=== PATIENT | male | born 1980 | race Caucasian/White ===

== ENCOUNTER 2017-10-29 12:28 | Day surgery (SDC) | payer BC, SELFPAY ==
[2017-10-29 12:39] VITALS: BP 125/81; PULSE 67; RESP 18; TEMP 36.8; O2SAT 96
[2017-10-29] MEDS: Lactated Ringers 1,000 ML 80 ML IV (13:01)
[2017-10-29] MEDS: Lidocaine 1% Pres-Free 5 ML VIAL 20 ML (13:36)
[2017-10-29] MEDS: Bupivacaine 0.5% Pres-Free 30 ML VIAL (13:36)
--- NOTE | 2017-10-29 13:38 | W.PM.DSUDISC ---
Discharge Plan Disposition Patient Disposition: HOME Condition: Stable Discharge Details Attending Provider: Mickey Corral Primary Care Provider: Gayathri Blackwell Home Meds and New Rx's Prescriptions: No Action naproxen sodium 220 mg Capsule 220 mg PO PRN PRNRF: 0 Discharge Instructions Additional Instructions: OK to restart Naproxen - may use tramadol at same time if needed No straining or lifting over 10 pounds for 48 hours OK to shower Ice back to scrotum (bag of frozen peas works well) No appt needed, but pt should bring semen sample to office in @ 12 weeks Activity:: see additional instructions Diet:: As Tolerated Discharge Orders Discharge Orders: Discharge Order (Routine); Ordered 10/29/17 Ordered By: Mickey Corral
--- NOTE | 2017-10-29 14:10 | ROE_ITS ---
DATE OF PROCEDURE: October 29, 2017 PREOPERATIVE DIAGNOSIS: Elective sterilization. POSTOPERATIVE DIAGNOSIS: Same. PROCEDURE: Bilateral vasectomy. SURGEON: Mickey Corral M.D. ANESTHESIA: Monitored Anesthesia Care with local. COMPLICATIONS: None. ESTIMATED BLOOD LOSS: Minimal. HISTORY: This is a 36-year-old gentleman who has two children. He and his current partner are not i nterested in further pregnancies. He presents for a vasectomy. PROCEDURE: He was brought to the procedure room on 10/29/17. He was given monitored anesthesia care and placed in the supine position. His genitalia was prepped and draped. We began on the left side and isolated the vase deferens up ag ainst the scrotal skin. The skin was infiltrated with 1% Xylocaine. The skin was then opened using a scalpel-free technique. The vas was grasped in a ring forceps. The vas was then dissected free from its surrounding tissue. A 2 cm section of vas was excised. Each cut end of the vas was cauterized using the Bovie. A cord block was then performed using 0.5% Marcaine. The more proximal end of the vas was buried albertina k beneath the adventitia with a simple interrupted 4-0 chromic suture. The same procedure was then performed on the patient's right side. Again a 2 cm section of vas was e xcised. Each cut end was cauterized. A cord block was performed and the more proximal end of the va s was buried back beneath the adventitia. Neither of the vas deferens specimens was sent to pathology. This is the current recommendation of t he [employer]. Each wound was inspected for hemostasis with no active bleeding seen. We closed the skin using Dermabond. The patient tolerated the procedure well with no complications. cc: Gayathri Blackwell M.D.
[2017-10-29 14:15] VITALS: BP 131/89; PULSE 58; RESP 16; TEMP 37; O2SAT 98
== END 2017-10-29 14:24 | disposition home or self-care (01) ==
PROVIDERS: Visit Provider Urology
PROC: (CPT 55250; principal; 2017-10-29 14:20)
DX: Z30.2 Encounter for sterilization (principal)
CPT/HCPCS: 55250; J1885; J2405

== ENCOUNTER 2023-08-06 06:06 | Day surgery (SDC) | payer BC, SELFPAY ==
[2023-08-06] VITALS (33 sets, daily range): BP systolic 123–148; BP diastolic 72–99; PULSE 63–91; RESP 11–22; TEMP 35.5–36.7; O2SAT 93–98; BMI 31.3
[2023-08-06] MEDS: Heparin 5,000 UNITS/ML VIAL 5000 UNITS SC (06:35)
[2023-08-06] MEDS: Lactated Ringers 1,000 ML 80 ML IV (06:35)
[2023-08-06] MEDS: Acetaminophen 500 MG TAB 1000 MG PO (06:36)
--- NOTE | 2023-08-06 06:59 | W.ANESPRE ---
General Info Date of Service Date Performed: 08/06/23 Height: 5 ft 8 in Weight: 93.4 kg Body Mass Index (BMI): 31.3 Surgical Procedure: Operation Date: 08/06/23 07:40 Proposed Procedure Side Surgeon p Hernia Inguinal Laparoscopic Left Edu Palomino MD Meds Allergies and Home Medications Allergies Allergy/AdvReac Type Severity Reaction Status Date / Time No Known Allergies Allergy Verified 08/06/23 06:26 Home Medication Medication Instructions Recorded Unknown [No Known Home Meds] 07/26/23 Current Visit Medications: Current Medications Generic Name Dose Route Start Last Admin Trade Name Freq PRN Reason Stop Dose Admin Acetaminophen 1,000 mg 08/06/23 06:00 08/06/23 06:36 Acetaminophen 500 Mg Tab PO 08/06/23 23:59 1,000 mg PREOP JAE Administration Heparin Sodium (Porcine) 5,000 units 08/06/23 06:00 08/06/23 06:35 Heparin 5,000 Units/Ml Vial SC 08/06/23 16:00 5,000 units TODAY JAE Administration Ringer's Solution 1,000 mls @ 80 mls/hr 08/06/23 06:00 08/06/23 06:35 IV 08/06/23 23:59 80 mls/hr INFUSION JAE Administration IV Miscellaneous Supplies 1 each 08/06/23 06:00 Iv Access IV 08/06/23 23:59 DIRECTED JAE Sodium Chloride 0 ml 08/06/23 06:00 Normal Saline Flush 10 Ml Syr IV 08/06/23 23:59 PRN PRN Sodium Chloride 0 ml 08/06/23 06:00 Normal Saline 10 Ml Vial IJ 08/06/23 23:59 DIRECTED PRN Sterile Water 0 ml 08/06/23 06:00 Water,Injection,Sterile 10 Ml Vial IJ 08/06/23 23:59 DIRECTED PRN PFSH Active Problems Active Problems: Problem Status Onset Code Direct left inguinal hernia K40.90 Medical History Medical History Lateral epicondylitis of right humerus Left inguinal hernia Essential hypertension Nicotine dependence Obesity post nasal drip enlarged tonsils Surgical History Surgical History Tonsillectomy Repair of inguinal hernia Tooth extraction Tobacco Smoking/Tobacco Use Status: Current every day Tobacco Type: cigarettes Years smoked: 5 Alcohol Alcohol Intake: current Alcohol intake frequency: a few times a month Alcohol type: beer and hard liquor Substance Use Substance use: Never Vital Signs and Lab Results Vital Signs Most Recent Vital Signs in EMR: Most Recent Vital Signs Temp Pulse Resp BP Pulse Ox 36.6 C 63 16 148/83 H 97 08/06/23 06:28 08/06/23 06:28 08/06/23 06:28 08/06/23 06:28 08/06/23 06:28 Lab Results Blood Type / Crossmatch: No Data to Display Complete Blood Count: No Data to Display Complete Metabolic Panel: No Data to Display Liver Function Panel: No Data to Display Coagulation Panel: No Data to Display Cardiac Panel: No Data to Display Arterial Blood Gas: No Data to Display Venous Blood Gas: No Data to Display Pancreas Panel: No Data to Display Thyroid Panel: No Data to Display Infectious Disease: No Data to Display Blood Cultures: No Data to Display Toxicology Panel: No Data to Display Anesthesia Assessment and Plan Anesthesia History Personal History: No History of Anesthesia Complications Family History: No Family History of Anesthesia Complications Exercise Tolerance Exercise Tolerance: Metabolic Equivalents>4 Cardiac & Pulmonary Exam Cardiac Exam: Normal S1/S2 Heart Sounds Pulmonary Exam: Clear Bilateral Breath Sounds Implantable Cardiac Device Does patient have a Pacemaker or an ICD?: No Airway Exam Known Difficult Airway: No Mallampati Class: 1 Mouth Opening: Normal (> 3cm) Thyromental Distance: Greater than 3 cm Facial Hair: Full Cisse Neck Range of Motion: Full ROM (Mild jaw click on right side) Neck Circumference: Normal Teeth Condition: Normal Dentition ASA Classification ASA Score: ASA 2 Emergency Case?: No NPO Status NPO Status: NPO Clears >2 hours, Solids >8 hours Anesthesia Plan Resuscitation Status: Full Code Anesthesia Technique: General Anesthesia Airway Planned: Natural Airway Monitors Used: Standard Monitors
[2023-08-06] MEDS: Bupivacaine LIPOSOME/PF 133 MG/10 ML VIAL IJ (08:05)
[2023-08-06] MEDS: Bupivacaine 0.25% Pres-Free 30 ML VIAL (08:05)
--- NOTE | 2023-08-06 09:35 | W.PM.OP ---
Date of service: 08/06/23 Time of Service: 09:15 Operative Note Operative Note Refer to Anesthesia Record Procedure Description: Procedures performed: 1. Laparoscopic LEFT inguinal hernia repair of primary, INCARCERATED inguinal hernia 2. Laparoscopic bilateral TAP block Preoperative Diagnosis: Reducible left inguinal hernia Postoperative Diagnosis: Incarcerated left indirect inguinal hernia Surgeon: Odell Palomino Assist: None Anesthesia: General Anesthesiologist: Xena Indication: Tender but reducible left inguinal hernia. Findings: The sigmoid colon was incarcerated within the inguinal canal. It was able to be reduced by dissecting out the hernia sac/peritoneal flap and no lysis of adhesions had to be done. A standard posterior repair with 3D max mesh was performed. Complications: None Estimated Blood Loss: (5cc) Scant Specimens removed: None Grafts or implants: 3D max left?sided large mesh Procedure in detail: Written consent was obtained from the patient who was in agreement with the risks, the benefits and the indications for the procedure. The patient was taken to the operating suite and laid supine on the operating table with his right arm tucked. IV antibiotics were not indicated and DVT prophylaxis had been given. Venodynes were in place. General anesthesia was administered which was tolerated very well. We then prepped and draped the abdomen in sterile fashion. A timeout was performed. When we were all in agreement we began the procedure. Local anesthetic was injected at each trocar site. Within the umbilicus a small stab incision was made and a 5 mm Optiview trocar was used to enter into the abdomen under direct visualization. There is a small primary umbilical hernia which was used for entry. The liver was inspected and did not appear cirrhotic. An indirect left inguinal hernia was present with a loop of sigmoid colon incarcerated inside of it. 2 other 5 mm port were placed under direct visualization and the umbilical port was upsized to a 12 mm to facilitate passing the mesh and sutures. A bilateral TAP block was performed under laparoscopic vision with a mixture of Exparel and bupivacaine. The patient was placed in Trendelenburg and we had good visualization of the intra-abdominal contents, pelvis and the left pelvic sidewall. In standard/usual fashion I created a peritoneal flap. A combination of blunt and sharp dissection was performed using the LigaSure. I was able to reduce the hernia sac out of the inguinal canal. In doing this, I completely reduced the sigmoid colon as well and did not have to do any adhesiolysis. I developed my space all the way medial to beyond the pubic tubercle midline. Len's ligament was clearly exposed. Hemostasis was excellent. A 3D max mesh was introduced in usual fashion and laid perfectly within the space I had created. The indirect, direct as well as the femoral spaces were all completely covered with significant and adequate overlay. I sutured a corner of the mesh to Len's ligament with Vicryl and in the upper outer quadrant to the fascia with Vicryl to the mesh would not rotate or migrate. Next I closed my peritoneal flap with the V-loc. Hemostasis was excellent. I closed the umbilical defect (which was a primary hernia) with 0 Vicryl. The 5 mm ports were removed. I closed the skin with Monocryl and put Dermabond on top. The testicles were present in the scrotum bilateral after the procedure. The sponge, instrument and sharps count was correct x3 at the end of the procedure. The patient tolerated the procedure well and was taken to the PACU in hemodynamically stable condition.
[2023-08-06] MEDS: HYDROmorphone 2 MG/ML SYR IVP ×4 (09:46→10:34)
[2023-08-06] MEDS: Normal Saline 10 ML VIAL IJ (09:46)
--- NOTE | 2023-08-06 10:20 | W.ANESPOSTOP ---
Postoperative Evaluation Date, Time and Location Date Performed: 08/06/23 Time Performed: 10:20 Patient Location: PACU Vital Signs Most Recent Imported Vital Signs: Most Recent Vital Signs Temp Pulse Resp BP Pulse Ox 36.7 C 82 19 136/91 H 9 L 08/06/23 10:10 08/06/23 09:55 08/06/23 09:55 08/06/23 09:55 08/06/23 10:10 Pain Score Most Recent Pain Score: Most Recent Pain Score Pain Level 6 08/06/23 10:10 Assessment Mental Status: Awake (Alert & Oriented to Patient Baseline) Airway and Respiratory Function: Patent airway with normal (patient baseline) respiratory exam Cardiovascular Function: Hemodynamically Stable Hydration Status: Adequately Hydrated Nausea & Vomiting: No Nausea or Vomiting Pain: Pain is Moderate or Severe Postoperative Pain Management: Pain being addressed with medication Peripheral Nerve Block: Patient did not receive a nerve block Postoperative Comments:: O2 sat 97%, correction made.
--- NOTE | 2023-08-06 10:27 | W.PM.DSUDISC ---
Date of service: 08/06/23 Time of Service: 10:27 Discharge Plan Disposition Patient Disposition: Home Condition: Good Discharge Details Attending Provider: Edu Palomino Primary Care Provider: Joanne Arechiga Home Meds and New Rx's Prescriptions: No Action No Known Home Meds Discharge Instructions Additional Instructions: Incisions: Keep clean and dry but they do not need to be covered. It is okay to shower but no tub bathing for 1 week. You can peel the glue off after 1 week. Activity: As tolerated. There are no restrictions. Return to work, as tolerated in the next few days. If you need a work note call the surgery office. Diet: Regular diet as tolerated Medications: Resume all of your usual/regular home medications Follow-up: Follow-up is optional. If you are having any issues or concerns call the surgery office immediately. If you want to have a routine follow-up that is perfectly fine and you can call and schedule an. If everything is otherwise going well, you do not need to follow-up. Pain control: Take Tylenol, 1000 mg, every 6 hours on a schedule for the next 3 days. You can use ibuprofen in addition to Tylenol and use the narcotic medication only as necessary for pain preventing you from sleeping. Overall: Symptoms should not be worsening. If you have any difficulty breathing or you have return of symptoms of brought you to the hospital or your pain is otherwise worsening each day and you should call the doctor's office or come into the hospital to be checked out. Stand Alone Forms: Anesthesia Discharge Inst., Anes.Nerve Block Instructions, Surendra Cunha (DSU) Activity:: Activity as Tolerated Diet:: As Tolerated
== END 2023-08-06 06:07 | disposition home or self-care (01) ==
PROVIDERS: PCP Nurse Practitioner Family; Visit Provider Student in an Organized Health Care Education/Training Program
PROC: (CPT 49650; principal; 2023-08-06 07:30)
DX: K40.30 Unilateral inguinal hernia, with obstruction, without gangrene, not specified as recurrent (principal); G89.18 Other acute postprocedural pain
CPT/HCPCS: 49507; 64488; 00123; C1781; C9290; J0665; J1100; J1644; J2001; J2250; J2405; J2704; J3010